=== PATIENT | female | born 2000 | race Caucasian/White ===

== ENCOUNTER → 2021-05-29 14:41 | Outpatient (CLI) | payer OTHER, SELFPAY ==
--- NOTE | ~2021-05-29 | MR_ITS ---
EXAMINATION: MR brain IAC wo/w con EXAM DATE: 05/29/2021 16:11 INDICATION: Sudden idiopathic right hearing loss and tinnitus. Dizziness. Unsteady gait, nausea and v omiting. TECHNIQUE: Multi-sequential, multiplanar MR images of the brain, brainstem, internal auditory canals were obtained without contrast. Whole brain sagittal T1, axial diffusion, gradient echo (T2*), T1, T 2, FLAIR sequences obtained. High resolution coronal 3-D FIESTA, coronal T1 FSE, axial T1 FSPGR of t he internal auditory canals. Patient was then injected with 10 cc Multihance contrast intravenously. Postcontrast axial and coronal T1 weighted whole brain, axial and coronal high resolution T1 IAC seq uences obtained. There is no prior study for comparison. FINDINGS: No evidence of mastoid or middle ear opacification. The 7th/8th cranial nerve complexes a re symmetric, normal in course and caliber. No cerebellopontine angle masses. Posterior fossa unrem arkable. Low-lying cerebellar tonsils not meeting criteria for Chiari I malformation. There are no areas of re stricted diffusion to suggest acute infarction. There is no acute hemorrhage seen on the T2*, a hemo siderin sensitive sequence. No intraparenchymal brain mass. The ventricles are normal in size. Ther e are no extra-axial collections. Flow voids are seen in the cerebral arteries on the T2-weighted se quences consistent with their expected patency. The orbits are unremarkable. Soft tissue is unremar kable. There are no areas of abnormal enhancement on the postcontrast images. IMPRESSION: 1. Low-lying cerebellar tonsils. 2. Otherwise unremarkable MRI brain. Reviewed, dictated and finalized at location A.
[2021-05-29 15:04] LABS: Estimated Glomerular Filt Rate > 60
== END ==
PROVIDERS: Visit Provider Nurse Practitioner Family
DX: H91.20 Sudden idiopathic hearing loss, unspecified ear (principal)
CPT/HCPCS: 70553; A9577

== ENCOUNTER 2022-11-03 11:57 | Emergency (ER) | payer OTHER, SELFPAY ==
--- NOTE | 2022-11-03 12:03 | ED.URI ---
HPI - URI/Sore Throat General Chief Complaint: Upper Respiratory Infection Stated Complaint: Cold Symptoms Source: patient and RN notes reviewed History of Present Illness HPI Narrative: 21-year-old female presents urgent care with complaints of worsening URI symptoms. Patient states she began having congestion, runny nose, sore throat, and sneezing five days ago. Patient states her symptoms are just getting worse and she feels like she is running fevers at home now. Patient reports being 17 weeks and the OTC cold medications she can take are not helping. Denies any vomiting, diarrhea abdominal pain, chest pain, shortness of breath. Denies any dysuria. 1 para 0. Some parts of this dictation were generated by voice recognition software and may contain typographical and/or grammatical inaccuracies. Related Data Allergies Allergy/AdvReac Type Severity Reaction Status Date / Time vancomycin Allergy Rash Verified 11/03/22 12:06 Review of Systems Review of Systems: CONSTITUTIONAL: Reports fever EYES: Denies visual changes, redness, or discharge. ENT: Reports sore throat and ear fullness CARDIOVASCULAR: Denies chest pain, palpitations, or edema. RESPIRATORY: Denies cough or dyspnea. GASTROINTESTINAL: Denies abdominal pain, nausea, vomiting, or diarrhea. GENITOURINARY: Denies dysuria or hematuria. SKIN: Denies rash or itching. MUSCULOSKELETAL: Denies back pain, joint pain, or myalgia. NEUROLOGIC: Denies headache, numbness, or weakness. PMFSH Comments At the time of my signature, I reviewed and agree with the nursing past medical, surgical, social, and family history. There is no relevant family history pertinent to the patient complaint. Exam Narrative: GENERAL: This is a well-nourished, well-developed patient, in no apparent distress. HEAD: normocephalic, atraumatic. EYES: PERRL. Sclera clear/white. Vision is grossly intact. EARS: External ears normal, auditory canals clear and without drainage, TMs normal without perforation. Hearing grossly intact. NOSE: External nose normal. + for congestion, nares erythemic and edematous. THROAT: Mucous membranes moist, posterior pharynx erythemic. Uvula midline. No exudate noted. NECK: Neck supple, non-tender without lymphadenopathy, masses or thyromegaly. CARDIOVASCULAR: Regular rate and rhythm without murmurs, gallops, or rubs. RESPIRATORY: Clear to auscultation. Breath sounds equal bilaterally. No wheezes, rales, or rhonchi. GASTROINTESTINAL: Abdomen soft, non-tender, nondistended. Bowel sounds are active. No hepato-splenomegaly, or palpable masses. No guarding. SKIN: warm, intact with no suspicious lesions or rash, good texture and turgor. NEURO: awake, alert, and oriented to person, place and time. There were no obvious focal neurologic abnormalities. Course Course Level of Care: Express Care Visit Vital Signs Vital signs: Vital Signs Temperature 97.4 F L 11/03/22 12:07 Pulse Rate 92 11/03/22 12:07 Respiratory Rate 16 11/03/22 12:07 Blood Pressure 118/61 11/03/22 12:07 Pulse Oximetry 99 11/03/22 12:07 Oxygen Delivery Room Air 11/03/22 12:07 Temperature 97.4 F L 11/03/22 12:07 Pulse Rate 92 11/03/22 12:07 Respiratory Rate 16 11/03/22 12:07 Blood Pressure 118/61 11/03/22 12:07 Pulse Oximetry 99 11/03/22 12:07 Oxygen Delivery Room Air 11/03/22 12:07 Reviewed MDM - URI/Sore Throat MDM Narrative Medical decision making narrative: Return to urgent care or go to the ER for new or worsening symptoms. Avoid smoking/second-hand smoke. Continue to take Tylenol for pain. Increase your Vitamin C intake. Use a humidifier or vaporizer at night. Take Medications as prescribed. Drink plenty of water. 8-10 glasses per day. Use flonase 2 times per day for 5 days then as needed Follow up with Primary provider if not getting better. Differential Diagnosis Differential diagnosis: Likely upper respiratory infection, lucia
[2022-11-03 12:07] VITALS: BP 118/61; PULSE 92; RESP 16; TEMP 36.3; O2SAT 99
== END 2022-11-03 12:20 | disposition home or self-care (01) ==
PROVIDERS: Emergency Provider Nurse Practitioner Family; PCP Family Medicine
DX: O99.512 Diseases of the respiratory system complicating pregnancy, second trimester (principal); Z3A.17 17 weeks gestation of pregnancy; J01.90 Acute sinusitis, unspecified
CPT/HCPCS: 99213; G0463